=== PATIENT | male | born 1955 | race Caucasian/White ===

== ENCOUNTER → 2016-10-24 | Outpatient (CLI) | payer MEDICARE, OTHER ==
[~2016-10-24] MED LIST: BUTALB-ACETAMI1 EAC1 PO; ELAVIL 25 MG TA25 MG PO; HYDROCHLOROTHIA25 MG PO; LEVOTHYROXINE50 MCG PO; LIPITOR TAB 2020 MG PO; LOPRESSOR50 MG PO; LOVENOX SY30 MG/0.3 SC; MECLIZINE HCL25 MG PO; NEURONTIN 400400 MG PO; NITROGLYCERIN0.4 MG SL; PAXIL20 MG PO; PLAVIX 75 MG TA75 MG PO; TOPAMAX50 MG PO; WARFARIN SODIUM4 MG PO; ZANTAC150 MG PO
== END ==
LOC: US 14:00
DX: E04.1 Nontoxic single thyroid nodule (principal); E04.9 Nontoxic goiter, unspecified
CPT/HCPCS: 76536

== ENCOUNTER → 2016-11-24 | Outpatient (CLI) | payer MEDICARE, OTHER | LOC: US 13:13 | DX: I73.9 Peripheral vascular disease, unspecified (principal); L81.9 Disorder of pigmentation, unspecified | CPT/HCPCS: 93925 ==